=== PATIENT | female | born 1985 | race Caucasian/White ===

== ENCOUNTER 2024-05-29 08:36 | Emergency (ER) | payer MEDICAID ==
[~2024-05-29] VITALS: Ht 167.6 cm; Wt 75.0 kg
[2024-05-29 08:37] VITALS: BP 122/94; PULSE 74; RESP 18; TEMP 98.7; O2SAT 99
== END 2024-05-29 10:50 | disposition home or self-care (01) ==
LOC: ER 08:48
DX: J06.9 Acute upper respiratory infection, unspecified (principal); J45.909 Unspecified asthma, uncomplicated; R05.9 Cough, unspecified
CPT/HCPCS: 71045; 99283; A4606